=== PATIENT | male | born 1955 | race Two or more races ===

== ENCOUNTER → 2017-06-14 | Outpatient (CLI) | payer MEDICARE ==
[2016-05-11 10:30] VITALS: BP 122/63
[~2017-06-14] MED LIST: GLIP10TA13 PO; METF-620 PO
--- NOTE | 2017-06-14 11:33 | RAD ---
INDICATION: BACK PAIN. COMPARISON: CT from 05/17/2016 IMPRESSION: Lumbar spine: 3 views obtained without definite acute fracture or dislocation. There is osteophyte formation at the vertebral body endplates as well as facet hypertrophy which can be seen with degenerative changes. Calcific atherosclerosis.
== END | disposition home or self-care (01) ==
LOC: RAD 10:38
PROVIDERS: ATTEND Family Medicine
DX: M47.896 Other spondylosis, lumbar region (principal)
CPT/HCPCS: 72100

== ENCOUNTER → 2018-07-23 | Outpatient (CLI) | payer MEDICARE ==
[2016-05-11 10:30] VITALS: BP 122/63
[~2018-07-23] MED LIST changes: -METF-620 PO; +METF10003 PO
--- NOTE | 2018-07-23 11:47 | RAD ---
Abdominal ultrasound, 07/23/2018: HISTORY: Epigastric pain The gallbladder is within normal limits in size. There is no sonographic evidence of cholelithiasis. The gallbladder chicas are not thickened. The common hepatic duct is of normal caliber. There is no evidence of a hepatic mass. No pancreatic abnormality is seen. The spleen is of normal size. No renal abnormality is detected. There is aortic atherosclerotic plaquing without evidence of aneurysm. The inferior vena cava is unremarkable. No free fluid is evident in the abdomen. IMPRESSION: No acute abdominal abnormality is detected. Electronically signed by: Carlos Kaur MD (07/23/2018 11:43 AM) [facility]
--- NOTE | 2018-07-24 15:41 | CARD ---
MR#: [id number] Date of Study: 07/23/2018 Ordering Physician: RHETT MONTENEGRO, Referring Physician: RHETT MONTENEGRO, Tech: YAO Sosa APPROVED REPORT EXAM: Two-dimensional and M-mode echocardiogram with Doppler and color Doppler. Other Information Quality : AverageHR: 66bpm INDICATION Dyspnea 2D DIMENSIONS RVDd3.4 (2.9-3.5cm)Left Atrium(2D)3.3 (1.6-4.0cm) IVSd1.2 (0.7-1.1cm)Aortic Root(2D)3.0 (2.0-3.7cm) LVDd4.4 (3.9-5.9cm)LVOT Diameter2.4 (1.8-2.4cm) PWd1.3 (0.7-1.1cm)LVDs2.8 (2.5-4.0cm) FS (%) 35.8 %SV56.7 ml LVEF(%)60.0 (>50%) Aortic Valve AoV Peak Alo.98.6cm/sAoV VTI21.0cm AO Peak GR.3.9mmHgLVOT Peak Alo.73.0cm/s LVOT VTI 17.75cmAO Mean GR.2mmHg ANGEL (VMAX)2.90yt3TFA (VTI)3.69cm2 AI P 1/2 Tsyb004qw Mitral Valve MV E Ycpbwjem02.7cm/sMV DECEL [id number] MV A Noqlmtkf85.5cm/sMV GVC52cy E/A Ratio1.0MVA (PHT)3.00cm2 TDI E/Lateral E'6.2E/Medial E'7.1 Pulmonary Valve PV Peak Dfglmqcw96.0cm/sPV Peak Grad.2mmHg Pulmonary Vein S1 Caomixve24.7cm/sD2 Wvtplrpe03.6cm/s LEFT VENTRICLE The left ventricle is normal size. There is mild concentric left ventricular hypertrophy. The left ve ntricular systolic function is normal and the ejection fraction is 60%. There is normal LV segmental wall motion. The left ventricular diastolic function and filling is normal for age. RIGHT VENTRICLE The right ventricle is normal size. The right ventricular systolic function is normal. ATRIA The left atrium size is normal. The right atrium size is normal. The interatrial septum is intact wit h no evidence for an atrial septal defect or patent foramen ovale as noted on 2-D or Doppler imaging. AORTIC VALVE The aortic valve is mildly calcified. Doppler and Color Flow revealed mild aortic regurgitation. Ther e is no significant aortic valvular stenosis. There is no aortic valvular vegetation. MITRAL VALVE The mitral valve is mildly thickened. There is no evidence of mitral valve prolapse. There is no mitr al valve stenosis. Doppler and Color-flow revealed trace mitral regurgitation. TRICUSPID VALVE The tricuspid valve leaflets are thickened , but open well. Doppler and Color Flow revealed no tricus pid valve regurgitation noted. There is no tricuspid valve prolapse or vegetation. There is no tricus pid valve stenosis. PULMONIC VALVE The pulmonic valve is not well visualized. Doppler and Color Flow revealed no pulmonic valvular regur gitation. There is no pulmonic valvular stenosis. GREAT VESSELS The aortic root is normal in size. The IVC is dilated and collapses <50% with inspiration. PERICARDIAL EFFUSION There is no pleural effusion. There is no evidence of significant pericardial effusion. Critical Notification Critical Value: No <Conclusion> There is mild concentric left ventricular hypertrophy. The left ventricular systolic function is normal and the ejection fraction is 60%. The left atrium size is normal. The right atrium size is normal. The aortic valve is mildly calcified. Doppler and Color Flow revealed mild aortic regurgitation. Doppler and Color-flow revealed trace mitral regurgitation. Doppler and Color Flow revealed no tricuspid valve regurgitation noted. The tricuspid valve leaflets are thickened , but open well. The pulmonic valve is not well visualized. There is no evidence of significant pericardial effusion. Signed by : Rhett Montenegro MD Electronically Approved : 07/24/2018 15:41:02
== END | disposition home or self-care (01) ==
LOC: ECHO 08:04
PROVIDERS: ATTEND Internal Medicine Cardiovascular Disease
DX: I35.1 Nonrheumatic aortic (valve) insufficiency (principal); I51.7 Cardiomegaly; I70.0 Atherosclerosis of aorta; K82.9 Disease of gallbladder, unspecified; E11.9 Type 2 diabetes mellitus without complications; Z87.891 Personal history of nicotine dependence
CPT/HCPCS: 76700; 93306

== ENCOUNTER → 2020-06-16 | Outpatient (CLI) | payer MEDICARE ==
[2016-05-11 10:30] VITALS: BP 122/63
[~2020-06-16] MED LIST changes: -METF10003 PO; +METF10007 PO
--- NOTE | 2020-06-16 12:53 | RAD ---
CT CHEST WO CONTRAST INDICATION: WEIGHT LOSS, LUNG CA SCREEN COMPARISON STUDY: None. TECHNIQUE: Unenhanced axial images were obtained through the lungs and upper abdomen. Coronal and sagittal multiplanar reconstructions were also obtained. PQRS compliance statement: One or more of the following individualized dose reduction techniques were utilized for this examination: 1. Automated exposure control 2. Adjustment of the mA and/or kV according to patient size 3. Use of iterative reconstruction technique FINDINGS: Lungs and Airways: No pulmonary mass or consolidation. Couple of indeterminate pulmonary nodules with medical representative nodule as follows: Middle lobe 4 mm nodule (series 3 image 42). Bilateral subpleural reticulation. Paraseptal and centrilobular emphysema. Normal central airways. Pleura: The pleural spaces are normal. Heart and Mediastinum: The visualized thyroid gland is normal in size and attenuation. No axillary or supraclavicular lymphadenopathy. No mediastinal, hilar or retrocrural lymphadenopathy. Normal cardiac size. Coronary artery atherosclerotic disease. Atherosclerosis of the thoracic aorta. Abdomen: The visualized abdominal organs demonstrate no abnormality. Bones and Soft Tissues: Degenerative changes of the spine. No aggressive lytic or blastic osseous lesions. Mild chronic appearing height loss at T8. IMPRESSION: 1. No pulmonary mass or consolidation. No thoracic lymphadenopathy. 2. Couple of small indeterminate pulmonary nodules. Consider optional 12 month follow-up unenhanced chest CT, given history of smoking. 3. Bilateral subpleural reticulation consistent with fibrotic change. Electronically signed by: Abdulkadir Freitas MD (06/16/2020 12:50 PM) [id number]
== END | disposition home or self-care (01) ==
LOC: CT 11:35
PROVIDERS: ATTEND Family Medicine
DX: Z12.2 Encounter for screening for malignant neoplasm of respiratory organs (principal); R91.1 Solitary pulmonary nodule; R63.4 Abnormal weight loss; J43.2 Centrilobular emphysema; I70.0 Atherosclerosis of aorta; I25.10 Atherosclerotic heart disease of native coronary artery without angina pectoris; Z87.891 Personal history of nicotine dependence
CPT/HCPCS: 71250